=== PATIENT | female | born 1940 | race Caucasian/White ===

== ENCOUNTER 2022-01-11 11:40 | Inpatient (IN) | payer OTHER, MEDICARE ==
[~2022-01-11] VITALS: Ht 149.9 cm; Wt 90.7 kg
[~2022-01-11 11:40] MED LIST: ACET325T PO; APIX5TAB4 PO; DOCU250C14 PO; EFF37 PO; FURO80TA3 PO; HYDR-4039 PO; METF-379 PO; METH1TAB35 PO; METO25TA6 PO; MIRA25TA PO; OMEP20CA15 PO; POTA-197 PO; ROSU20TA2 PO
[2022-01-11 13:30] VITALS: BP_SYST 109
[2022-01-11] MEDS: ACETAMINOPHEN 325 MG TABLET PO PRN (17:31)
[2022-01-11] MEDS ORDERED: TRAM50TA2 PO (18:53)
[2022-01-11 19:48] LABS: ALANINE AMINOTRANSFERASE 23 U/L (12-78); ALBUMIN 2.5 g/dL (3.4-4.8); ANION GAP 10 (5-15); ASPARTATE AMINOTRANSFERASE 8 U/L (10-37); CHLORIDE 98 mmol/L (98-107); CREATININE 0.87 mg/dL (0.55-1.30); GLUCOSE 238 mg/dL (70-99); POTASSIUM 3.6 mmol/L (3.5-5.1); SODIUM SERUM 134 mmol/L (136-145); UREA NITROGEN, BLOOD 19 mg/dL (8-21)
[2022-01-11 20:00] VITALS: BP_SYST 125
[2022-01-11 20:02] LABS: PROTHROMBIN TIME 10.3 SECS (9.5-12.5)
[2022-01-11 20:16] LABS: TOTAL BILIRUBIN 0.2 mg/dL (0.0-1.0)
[2022-01-11] MEDS: ATORVASTATIN 20 MG TABLET PO SCH (22:10)
[2022-01-11] MEDS: traMADol HCL HCL 50 MG TABLET (ULTRAM) PO PRN (22:11)
[2022-01-11] MEDS: metFORMIN HCL 500 MG TABLET PO SCH (22:12)
[2022-01-11] MEDS: METOPROLOL TARTRATE 25 MG TABLET PO SCH (22:13)
[2022-01-11] MEDS: DOCUSATE SODIUM 250 MG CAPSULE PO SCH (22:14)
[2022-01-11] MEDS: POTASSIUM CHLORIDE 10 MEQ TAB.PRT.SR PO SCH (22:14)
[2022-01-11] MEDS: hydrALAZINE HCL 25 MG TABLET PO SCH (22:16)
[2022-01-12 00:32] VITALS: BP_SYST 115
[2022-01-12 03:28] LABS: BILIRUBIN,URINE NEGATIVE (NEGATIVE); BLOOD, URINE NEGATIVE (NEGATIVE); CLARITY/URINE CLEAR (CLEAR); COLOR,URINE YELLOW (YELLOW); GLUCOSE,URINE NEGATIVE (NEGATIVE); KETONES,URINE NEGATIVE (NEGATIVE); LEUKOCYTE ESTERASE ,URINE NEGATIVE (NEGATIVE); NITRITE, URINE NEGATIVE (NEGATIVE); PROTEIN URINE NEGATIVE (NEGATIVE); UROBILINOGEN,URINE 0.2 (0.2-1.0)
[2022-01-12 08:00] VITALS: BP_SYST 144
[2022-01-12 08:55] LABS: BASOPHILS # (AUTO) 0.1 K/uL (0.0-0.2); BASOPHILS % (AUTO) 0.6 % (0.0-2.0); EOSINOPHILS # (AUTO) 0.1 K/uL (0.0-0.4); EOSINOPHILS % (AUTO) 1.1 % (0.0-4.0); HEMATOCRIT 25.4 % (36-48); HEMOGLOBIN 8.1 g/dL (12.0-16.0); LYMPHOCYTES # (AUTO) 1.5 K/uL (1.0-5.5); LYMPHOCYTES % (AUTO) 12.9 % (20.5-51.5); MEAN CORPUSCULAR HEMOGLOBIN 26 pg (27-31); MEAN CORPUSCULAR HGB CONC 32 % (32-36); MEAN CORPUSCULAR VOLUME 82 fL (79.0-98.0); MONOCYTES # (AUTO) 0.7 K/uL (0.0-1.0); NEUTROPHILS % (AUTO) 79.4 % (40.0-70.0); PLATELET COUNT (AUTO) 530 K/uL (130-430); RED BLOOD CELL COUNT(AUTO) 3.12 MIL/uL (4.2-6.2); RED CELL DISTRIBUTION WIDTH 18.1 % (9.0-15.0); WHITE BLOOD COUNT (AUTO) 11.3 K/uL (4.8-10.8)
[2022-01-12] MEDS: metFORMIN HCL 500 MG TABLET PO SCH ×2 (09:00→22:00)
[2022-01-12] MEDS: METOPROLOL TARTRATE 25 MG TABLET PO SCH ×2 (09:00→23:36)
[2022-01-12] MEDS ORDERED: ACETAMINOPHEN 325 MG TABLET PO SCH (09:00)
[2022-01-12] MEDS: PANTOPRAZOLE SODIUM 40 MG TAB PO SCH (09:00)
[2022-01-12] MEDS: Effexor XR 37.5 MG PO SCH (09:00)
[2022-01-12] MEDS: POTASSIUM CHLORIDE 10 MEQ TAB.PRT.SR PO SCH ×2 (09:00→22:44)
[2022-01-12] MEDS: DOCUSATE SODIUM 250 MG CAPSULE PO SCH (09:00)
[2022-01-12] MEDS: hydrALAZINE HCL 25 MG TABLET PO SCH ×2 (09:00→23:36)
[2022-01-12] MEDS: FUROSEMIDE 80 MG TABLET PO SCH (09:00)
[2022-01-12] MEDS ORDERED: BUPIVACAINE LIPOSOME/PF 266 MG/20 ML VIAL INFIL ONE (09:50)
[2022-01-12] MEDS ORDERED: ACETAMINOPHEN I.V. 1000 MG 100 ML IV ONE (11:37)
[2022-01-12] MEDS ORDERED: PROPOFOL 200MG/ 20ML VIAL (DIPRIVAN) IV ONE (12:46)
[2022-01-12] MEDS ORDERED: CEFAZOLIN 2 GM IVPB PREMIX 50 ML IV ONE (12:46)
[2022-01-12] MEDS ORDERED: NS IRRIG SOLN 1000 ML IR ONE (12:46)
[2022-01-12] MEDS ORDERED: BUPIVACAINE /EPINEPHRINE/PF 0.5% 30 ML VIAL INJ ONE (12:46)
[2022-01-12] MEDS ORDERED: BUPIVACAINE /PF 0.5% 30 ML VIAL ONE (12:46)
[2022-01-12] MEDS ORDERED: GENTAMICIN 80 mg/ NS 50 mL IVPB IV ONE (12:46)
[2022-01-12] MEDS ORDERED: LABETALOL 100 MG/ 20ML VIAL ONE (12:46)
[2022-01-12] MEDS ORDERED: fentaNYL CITRATE/PF 100 MCG/2 ML AMP ONE (12:46)
[2022-01-12] MEDS ORDERED: HYDROmorphone 2 MG/ML VIAL ONE (12:46)
[2022-01-12] MEDS ORDERED: ONDANSETRON HCL 4 MG/2 ML VIAL ONE (12:46)
[2022-01-12] MEDS ORDERED: METOCLOPRAMIDE HCL 10 MG/2 ML VIAL ONE (12:46)
[2022-01-12] MEDS ORDERED: TRIAMCINOLONE ACETONIDE 40 MG/ML ONE (12:46)
[2022-01-12] MEDS ORDERED: NS 1000 ML IV.SOLN IV ONE (12:46)
[2022-01-12] MEDS ORDERED: DESFLURANE 15 MIN GAS INH ONE (12:46)
[2022-01-12 13:06] VITALS: BP_SYST 135
[2022-01-12] MEDS ORDERED: HYDROmorphone 2 MG/ML VIAL IVP PRN (13:30)
[2022-01-12] MEDS ORDERED: HYDROcodone/ACETAMIN 5-325 MG TAB (NORCO/ VICODIN) PO PRN ×2 (13:30)
[2022-01-12] MEDS ORDERED: NALOXONE HCL 0.4 MG/ML AMP (NARCAN) IVP PRN ×2 (13:30)
[2022-01-12] MEDS ORDERED: ONDANSETRON 4 MG ODT TAB PO PRN (13:30)
[2022-01-12] MEDS ORDERED: DIPHENHYDRAMINE INJ 50 MG/ML VIAL IVP PRN (13:30)
[2022-01-12] MEDS ORDERED: HYDROmorphone 1 MG/ML INJ. CARTRIDGE ONE (13:37)
[2022-01-12] MEDS ORDERED: HYDROmorphone 1 MG/ML INJ. CARTRIDGE IVP PRN (13:45)
[2022-01-12 16:00] VITALS: BP_SYST 114
[2022-01-12] MEDS ORDERED: MENTHOL/ZINC OXIDE 113 GM OINT. TP PRN (16:00)
[2022-01-12] MEDS: CEFAZOLIN 1 GM IVPB PREMIX 50 ML IV SCH ×2 (17:52→22:45)
[2022-01-12 20:20] VITALS: BP_SYST 108
[2022-01-12] MEDS: ATORVASTATIN 20 MG TABLET PO SCH (22:41)
[2022-01-12] MEDS: APIXABAN 2.5 MG TABLET PO SCH (22:43)
[2022-01-12] MEDS: DOCUSATE SODIUM 100 MG CAPSULE PO SCH (22:44)
[2022-01-12] MEDS: FERROUS SULFATE 325 MG TABLET.DR PO SCH (22:44)
[2022-01-12] MEDS: traMADol HCL HCL 50 MG TABLET (ULTRAM) PO PRN (23:32)
[2022-01-13 00:30] VITALS: BP_SYST 125
[2022-01-13] MEDS: ACETAMINOPHEN 325 MG TABLET PO PRN (01:30)
[2022-01-13 02:55] VITALS: BP_SYST 130
[2022-01-13] MEDS: POTASSIUM CHLORIDE 10 MEQ TAB.PRT.SR PO SCH ×2 (09:00→22:48)
[2022-01-13] MEDS: APIXABAN 2.5 MG TABLET PO SCH ×2 (09:00→22:54)
[2022-01-13] MEDS: Effexor XR 37.5 MG PO SCH (09:00)
[2022-01-13 09:31] LABS: BASOPHILS % (AUTO) 0.2 % (0.0-2.0); LYMPHOCYTES # (AUTO) 1.2 K/uL (1.0-5.5); LYMPHOCYTES % (AUTO) 7.2 % (20.5-51.5); MEAN CORPUSCULAR HEMOGLOBIN 25 pg (27-31); MEAN CORPUSCULAR HGB CONC 31 % (32-36); MEAN CORPUSCULAR VOLUME 81 fL (79.0-98.0); MONOCYTES # (AUTO) 0.4 K/uL (0.0-1.0); MONOCYTES % (AUTO) 2.7 % (1.7-9.3); NEUTROPHILS # (AUTO) 15.1 K/uL (1.8-7.7); NEUTROPHILS % (AUTO) 89.9 % (40.0-70.0); PLATELET COUNT (AUTO) 611 K/uL (130-430); RED BLOOD CELL COUNT(AUTO) 2.34 MIL/uL (4.2-6.2); RED CELL DISTRIBUTION WIDTH 18.1 % (9.0-15.0); WHITE BLOOD COUNT (AUTO) 16.7 K/uL (4.8-10.8)
[2022-01-13 10:09] LABS: HEMOGLOBIN 5.9 g/dL (12.0-16.0)
[2022-01-13] MEDS: hydrALAZINE HCL 25 MG TABLET PO SCH ×2 (10:16→22:51)
[2022-01-13] MEDS: FERROUS SULFATE 325 MG TABLET.DR PO SCH ×2 (10:17→22:49)
[2022-01-13] MEDS: FUROSEMIDE 80 MG TABLET PO SCH (10:18)
[2022-01-13] MEDS: METOPROLOL TARTRATE 25 MG TABLET PO SCH ×2 (10:18→22:50)
[2022-01-13] MEDS: PANTOPRAZOLE SODIUM 40 MG TAB PO SCH (10:18)
[2022-01-13] MEDS: DOCUSATE SODIUM 100 MG CAPSULE PO SCH ×2 (10:21→22:49)
[2022-01-13] MEDS: metFORMIN HCL 500 MG TABLET PO SCH ×2 (10:27→22:49)
[2022-01-13 13:11] VITALS: BP_SYST 123
[2022-01-13 16:07] VITALS: BP_SYST 126
[2022-01-13 20:00] VITALS: BP_SYST 137
[2022-01-13] MEDS: ATORVASTATIN 20 MG TABLET PO SCH (22:48)
[2022-01-13] MEDS: traMADol HCL HCL 50 MG TABLET (ULTRAM) PO PRN (22:48)
[2022-01-14 01:57] VITALS: BP_SYST 99
[2022-01-14] MEDS: METOPROLOL TARTRATE 25 MG TABLET PO SCH ×2 (09:00→22:26)
[2022-01-14] MEDS: hydrALAZINE HCL 25 MG TABLET PO SCH ×2 (09:00→22:25)
[2022-01-14 09:44] LABS: BASOPHILS % (AUTO) 0.1 % (0.0-2.0); HEMATOCRIT 26.5 % (36-48); HEMOGLOBIN 8.5 g/dL (12.0-16.0); LYMPHOCYTES # (AUTO) 0.8 K/uL (1.0-5.5); LYMPHOCYTES % (AUTO) 5.8 % (20.5-51.5); MEAN CORPUSCULAR HEMOGLOBIN 27 pg (27-31); MEAN CORPUSCULAR HGB CONC 32 % (32-36); MEAN CORPUSCULAR VOLUME 85 fL (79.0-98.0); MONOCYTES # (AUTO) 0.5 K/uL (0.0-1.0); MONOCYTES % (AUTO) 3.9 % (1.7-9.3); NEUTROPHILS # (AUTO) 12.8 K/uL (1.8-7.7); NEUTROPHILS % (AUTO) 90.2 % (40.0-70.0); PLATELET COUNT (AUTO) 441 K/uL (130-430); RED BLOOD CELL COUNT(AUTO) 3.13 MIL/uL (4.2-6.2); RED CELL DISTRIBUTION WIDTH 16.1 % (9.0-15.0); WHITE BLOOD COUNT (AUTO) 14.2 K/uL (4.8-10.8)
[2022-01-14] MEDS: FUROSEMIDE 80 MG TABLET PO SCH (09:47)
[2022-01-14] MEDS: POTASSIUM CHLORIDE 10 MEQ TAB.PRT.SR PO SCH ×2 (09:47→22:25)
[2022-01-14] MEDS: DOCUSATE SODIUM 100 MG CAPSULE PO SCH ×2 (09:48→22:25)
[2022-01-14] MEDS: PANTOPRAZOLE SODIUM 40 MG TAB PO SCH (09:48)
[2022-01-14] MEDS: FERROUS SULFATE 325 MG TABLET.DR PO SCH ×2 (09:48→22:25)
[2022-01-14] MEDS: metFORMIN HCL 500 MG TABLET PO SCH ×2 (09:48→22:26)
[2022-01-14] MEDS: APIXABAN 2.5 MG TABLET PO SCH ×2 (09:52→22:28)
[2022-01-14 09:54] LABS: ALANINE AMINOTRANSFERASE 18 U/L (12-78); ALBUMIN 2.3 g/dL (3.4-4.8); ANION GAP 4 (5-15); ASPARTATE AMINOTRANSFERASE 21 U/L (10-37); CALCIUM 9.9 mg/dL (8.4-11.0); CHLORIDE 102 mmol/L (98-107); CREATININE 0.81 mg/dL (0.55-1.30); GLUCOSE 281 mg/dL (70-99); POTASSIUM 3.9 mmol/L (3.5-5.1); SODIUM SERUM 131 mmol/L (136-145); UREA NITROGEN, BLOOD 20 mg/dL (8-21)
[2022-01-14] MEDS: Effexor XR 37.5 MG PO SCH (09:54)
[2022-01-14 10:21] LABS: TOTAL BILIRUBIN < 0.1 mg/dL (0.0-1.0)
[2022-01-14] MEDS: ACETAMINOPHEN 325 MG TABLET PO PRN (15:19)
[2022-01-14 16:27] VITALS: BP_SYST 110
[2022-01-14 20:10] VITALS: BP_SYST 142
[2022-01-14] MEDS: ATORVASTATIN 20 MG TABLET PO SCH (22:33)
[2022-01-14] MEDS: traMADol HCL HCL 50 MG TABLET (ULTRAM) PO PRN (22:34)
[2022-01-15 01:57] VITALS: BP_SYST 147
[2022-01-15] MEDS: ACETAMINOPHEN 325 MG TABLET PO PRN (03:46)
[2022-01-15] MEDS: metFORMIN HCL 500 MG TABLET PO SCH ×2 (09:13→22:22)
[2022-01-15] MEDS: FERROUS SULFATE 325 MG TABLET.DR PO SCH ×2 (09:13→22:23)
[2022-01-15] MEDS: DOCUSATE SODIUM 100 MG CAPSULE PO SCH ×2 (09:14→22:23)
[2022-01-15] MEDS: hydrALAZINE HCL 25 MG TABLET PO SCH ×2 (09:14→22:23)
[2022-01-15] MEDS: FUROSEMIDE 80 MG TABLET PO SCH (09:14)
[2022-01-15] MEDS: PANTOPRAZOLE SODIUM 40 MG TAB PO SCH (09:14)
[2022-01-15] MEDS: METOPROLOL TARTRATE 25 MG TABLET PO SCH ×2 (09:15→22:21)
[2022-01-15] MEDS: POTASSIUM CHLORIDE 10 MEQ TAB.PRT.SR PO SCH ×2 (09:15→22:23)
[2022-01-15] MEDS: APIXABAN 2.5 MG TABLET PO SCH ×2 (09:16→22:28)
[2022-01-15] MEDS: Effexor XR 37.5 MG PO SCH (09:20)
[2022-01-15] MEDS ORDERED: INSULIN LISPRO SLIDING SCALE 100 UNITS/ML VIAL (humaLOG) SUBCUT PRN (12:00)
[2022-01-15 12:40] VITALS: BP_SYST 126
[2022-01-15 16:39] LABS: INR 0.9 (0.8-1.2); PROTHROMBIN TIME 9.3 SECS (9.5-12.5)
[2022-01-15] MEDS: VANCOMYCIN HCL 750 MG in NS 250 ML IV SCH (17:02)
[2022-01-15 18:04] VITALS: BP_SYST 136
[2022-01-15] MEDS: ATORVASTATIN 20 MG TABLET PO SCH (22:21)
[2022-01-15] MEDS: traMADol HCL HCL 50 MG TABLET (ULTRAM) PO PRN (22:33)
[2022-01-15 23:58] VITALS: BP_SYST 133
[2022-01-16 05:14] VITALS: BP_SYST 150
[2022-01-16] MEDS: APIXABAN 2.5 MG TABLET PO SCH ×2 (08:20→21:37)
[2022-01-16] MEDS: hydrALAZINE HCL 25 MG TABLET PO SCH ×2 (08:21→21:34)
[2022-01-16] MEDS: FERROUS SULFATE 325 MG TABLET.DR PO SCH ×2 (08:21→21:33)
[2022-01-16] MEDS: POTASSIUM CHLORIDE 10 MEQ TAB.PRT.SR PO SCH ×2 (08:21→21:34)
[2022-01-16] MEDS: DOCUSATE SODIUM 100 MG CAPSULE PO SCH ×2 (08:22→21:34)
[2022-01-16] MEDS: metFORMIN HCL 500 MG TABLET PO SCH ×2 (08:22→21:33)
[2022-01-16] MEDS: METOPROLOL TARTRATE 25 MG TABLET PO SCH ×2 (08:23→21:35)
[2022-01-16] MEDS: FUROSEMIDE 80 MG TABLET PO SCH (08:24)
[2022-01-16] MEDS: ACETAMINOPHEN 325 MG TABLET PO PRN ×2 (08:25→15:14)
[2022-01-16] MEDS: Effexor XR 37.5 MG PO SCH (08:54)
[2022-01-16] MEDS: PANTOPRAZOLE SODIUM 40 MG TAB PO SCH (08:55)
[2022-01-16 11:26] VITALS: BP_SYST 113
[2022-01-16 12:00] VITALS: BP_SYST 124
[2022-01-16 12:24] LABS: INR 0.9 (0.8-1.2); PROTHROMBIN TIME 9.7 SECS (9.5-12.5)
[2022-01-16] MEDS: VANCOMYCIN HCL 750 MG in NS 250 ML IV SCH (15:19)
[2022-01-16 15:20] VITALS: BP_SYST 146
[2022-01-16 16:00] VITALS: BP_SYST 138
[2022-01-16 21:08] VITALS: BP_SYST 138
[2022-01-16] MEDS: ATORVASTATIN 20 MG TABLET PO SCH (21:35)
[2022-01-16] MEDS: traMADol HCL HCL 50 MG TABLET (ULTRAM) PO PRN (21:36)
== END 2022-01-16 22:35 | DRG 463 ==
LOC: SMU 11:40
PROVIDERS: ADMIT Orthopaedic Surgery; ATTEND Orthopaedic Surgery
PROC: 30233N1 Transfusion of Nonautologous Red Blood Cells into Peripheral Vein, Percutaneous Approach (ICD-10-PCS; 2022-01-13)
PROC: 0SPC09Z Removal of Liner from Right Knee Joint, Open Approach (ICD-10-PCS; principal; 2022-01-16)
PROC: 0SUC09Z Supplement Right Knee Joint with Liner, Open Approach (ICD-10-PCS; 2022-01-16)
PROC: 3E1U38Z Irrigation of Joints using Irrigating Substance, Percutaneous Approach (ICD-10-PCS; 2022-01-16)
DX: T84.53XA Infection and inflammatory reaction due to internal right knee prosthesis, initial encounter (principal); E43 Unspecified severe protein-calorie malnutrition; M00.9 Pyogenic arthritis, unspecified; T81.30XA Disruption of wound, unspecified, initial encounter; Z68.41 Body mass index [BMI] 40.0-44.9, adult; I10 Essential (primary) hypertension; E11.9 Type 2 diabetes mellitus without complications; Z96.651 Presence of right artificial knee joint; Z66 Do not resuscitate; E66.9 Obesity, unspecified; Z20.822 Contact with and (suspected) exposure to COVID-19; D63.8 Anemia in other chronic diseases classified elsewhere; M17.11 Unilateral primary osteoarthritis, right knee; E78.5 Hyperlipidemia, unspecified; Y83.1 Surgical operation with implant of artificial internal device as the cause of abnormal reaction of the patient, or of later complication, without mention of misadventure at the time of the procedure; Y92.89 Other specified places as the place of occurrence of the external cause
CPT/HCPCS: 36415; 71045; 80053; 81003; 82962; 85025; 85610-TC; 85651-TC; 85730-TC; 86140; 86886; 86900; 86901; 86920; 87070-TC; 87081; 88300; 93005; 97110-GP; 97116-GP; 97163-GP; 97530-GP; A2007; C1776; C9290; J0131; J0690; J1170; J1580; J2405; J2704; J2765; J3010; J3301; J3370; J3490; J7030; J7050; P9021

== ENCOUNTER 2022-02-17 22:12 | Inpatient (IN) | payer OTHER, MEDICARE ==
[~2022-02-17] VITALS: Ht 149.9 cm; Wt 87.5 kg
[~2022-02-17 22:12] MED LIST changes: +TRAM50TA2 PO
[2022-02-17 22:20] VITALS: BP_SYST 115
[2022-02-17 23:30] LABS: BASOPHILS # (AUTO) 0.1 K/uL (0.0-0.2); EOSINOPHILS # (AUTO) 0.1 K/uL (0.0-0.4); LYMPHOCYTES # (AUTO) 1.2 K/uL (1.0-5.5); MEAN CORPUSCULAR HEMOGLOBIN 27 pg (27-31); NEUTROPHILS # (AUTO) 4.5 K/uL (1.8-7.7)
[2022-02-17 23:40] LABS: ANION GAP 6 (5-15); BASOPHILS % (AUTO) 1.4 % (0.0-2.0); CALCIUM 9.1 mg/dL (8.4-11.0); CHLORIDE 102 mmol/L (98-107); CREATININE 0.98 mg/dL (0.55-1.30); EOSINOPHILS % (AUTO) 1.8 % (0.0-4.0); GLUCOSE 123 mg/dL (70-99); HEMATOCRIT 31.2 % (36-48); LYMPHOCYTES % (AUTO) 18.9 % (20.5-51.5); MEAN CORPUSCULAR HGB CONC 32 % (32-36); MEAN CORPUSCULAR VOLUME 83 fL (79.0-98.0); MONOCYTES # (AUTO) 0.5 K/uL (0.0-1.0); MONOCYTES % (AUTO) 7.3 % (1.7-9.3); NEUTROPHILS % (AUTO) 70.6 % (40.0-70.0); PLATELET COUNT (AUTO) 274 K/uL (130-430); POTASSIUM 3.9 mmol/L (3.5-5.1); RED BLOOD CELL COUNT(AUTO) 3.77 MIL/uL (4.2-6.2); RED CELL DISTRIBUTION WIDTH 17.7 % (9.0-15.0); SODIUM SERUM 136 mmol/L (136-145); UREA NITROGEN, BLOOD 19 mg/dL (8-21); WHITE BLOOD COUNT (AUTO) 6.3 K/uL (4.8-10.8)
[2022-02-17] MEDS ORDERED: CEFAZOLIN 1 GM IVPB PREMIX 50 ML IV ONE (23:45)
[2022-02-17] MEDS ORDERED: INSULIN REGULAR, HUMAN 100 UNITS/ML, 10 ML VIAL (humuLIN R) SUBCUT PRN ×2 (23:45)
[2022-02-17 23:47] LABS: ALANINE AMINOTRANSFERASE 29 U/L (12-78); ALBUMIN 2.7 g/dL (3.4-4.8); ASPARTATE AMINOTRANSFERASE 19 U/L (10-37); TOTAL BILIRUBIN 0.1 mg/dL (0.0-1.0)
[2022-02-18] MEDS ORDERED: PIPERACILLIN/TAZOBACTAM 2.25 GM in NS 50 ML IV SCH ×2
[2022-02-18] MEDS ORDERED: BISA10SU61 RC (00:57)
[2022-02-18] MEDS ORDERED: CALC-1140 PO (00:58)
[2022-02-18] MEDS ORDERED: CALMO120 TP (00:59)
[2022-02-18] MEDS ORDERED: VENL150C4 PO (01:12)
[2022-02-18] MEDS ORDERED: VANC1.2527 IV (01:12)
[2022-02-18] MEDS ORDERED: ASCO500T20 PO (01:13)
[2022-02-18] MEDS ORDERED: RIFA300C9 PO (01:14)
[2022-02-18] MEDS ORDERED: LIP80 PO (01:15)
[2022-02-18] MEDS ORDERED: LACT1TAB14 PO (01:18)
[2022-02-18] MEDS ORDERED: IBUP-1969 PO (01:19)
[2022-02-18] MEDS ORDERED: LOVI100 SQ (01:22)
[2022-02-18] MEDS ORDERED: LIDO1ADH77 TP (01:22)
[2022-02-18] MEDS ORDERED: METH1TAB35 PO (01:23)
[2022-02-18] MEDS ORDERED: MULT-598 PO (01:24)
[2022-02-18] MEDS ORDERED: PRO40 PO (01:25)
[2022-02-18] MEDS ORDERED: DICL100G33 TP (01:27)
[2022-02-18] MEDS ORDERED: MAGN400T10 PO (01:30)
[2022-02-18] MEDS ORDERED: MELA5TAB12 PO (01:31)
[2022-02-18] MEDS ORDERED: SSNOVOLOG SUBCUT (01:37)
[2022-02-18] MEDS ORDERED: ceFAZolin SODIUM 1 GM VIAL ONE (02:25)
[2022-02-18 03:35] VITALS: BP_SYST 118
[2022-02-18] MEDS ORDERED: PIPERACILLIN/TAZOBACTAM 2.25 GM VIAL IV ONE (04:46)
[2022-02-18 08:00] VITALS: BP_SYST 124
[2022-02-18] MEDS ORDERED: GLUCOSE (DEXTROSE) ORAL GEL -Adults PO PRN (08:00)
[2022-02-18] MEDS ORDERED: DEXTROSE 50%-WATER 50 ML DISP.SYRIN IVP PRN (08:00)
[2022-02-18] MEDS ORDERED: D5W 1,000 ML IV PRN (08:00)
[2022-02-18] MEDS ORDERED: LACT10SO7 PO (11:53)
[2022-02-18 12:00] VITALS: BP_SYST 120
[2022-02-18] MEDS: PIPERACILLIN/TAZO 2.25G/DEX-IS 50 ML IV SCH ×2 (12:16→17:19)
[2022-02-18] MEDS: INSULIN REGULAR, HUMAN 100 UNITS/ML, 10 ML VIAL (humuLIN R) SUBCUT PRN (12:35)
[2022-02-18] MEDS: IBUPROFEN 600 MG TABLET PO PRN ×2 (13:45→21:21)
[2022-02-18] MEDS ORDERED: MENTHOL/ZINC OXIDE 113 GM OINT. TP SCH (14:15)
[2022-02-18] MEDS ORDERED: BISACODYL 10 MG/SUPPOSITORY RC PRN (14:15)
[2022-02-18] MEDS ORDERED: traMADol HCL HCL 50 MG TABLET (ULTRAM) PO PRN (14:15)
[2022-02-18] MEDS ORDERED: IBUPROFEN 600 MG TABLET PO PRN (14:15)
[2022-02-18] MEDS ORDERED: VENLAFAXINE HCL Non-Formulary 75 MG CAP.SR.24H PO SCH (14:15)
[2022-02-18] MEDS ORDERED: VENLAFAXINE HCL 50 MG TABLET PO SCH (15:00)
[2022-02-18] MEDS ORDERED: FUROSEMIDE 80 MG TABLET PO ONE (15:00)
[2022-02-18] MEDS ORDERED: METOPROLOL TARTRATE 25 MG TABLET PO ONE (15:00)
[2022-02-18] MEDS ORDERED: hydrALAZINE HCL 25 MG TABLET PO ONE (15:00)
[2022-02-18 16:31] VITALS: BP_SYST 128
[2022-02-18] MEDS: VANCOMYCIN HCL 1,000 MG in NS 250 ML IV SCH (17:16)
[2022-02-18] MEDS: ENOXAPARIN SODIUM 100 MG/ML SYRINGE SQ SCH (21:00)
[2022-02-18 21:02] VITALS: BP_SYST 132
[2022-02-18] MEDS: ATORVASTATIN 20 MG TABLET PO SCH (21:07)
[2022-02-18] MEDS: POTASSIUM CHLORIDE 20 MEQ TAB.PRT.SR PO SCH (21:07)
[2022-02-18] MEDS: MAGNESIUM OXIDE 400 MG TABLET PO SCH (21:07)
[2022-02-18] MEDS: METOPROLOL TARTRATE 25 MG TABLET PO SCH (21:08)
[2022-02-18] MEDS: metFORMIN HCL 500 MG TABLET PO SCH (21:09)
[2022-02-18] MEDS: hydrALAZINE HCL 25 MG TABLET PO SCH (21:09)
[2022-02-18] MEDS: DOCUSATE SODIUM 250 MG CAPSULE PO SCH (21:10)
[2022-02-18] MEDS: ASCORBIC ACID 500 MG TABLET PO SCH (21:10)
[2022-02-18] MEDS: LACTOBACILLUS RHAMNOSUS GG 1 CAP CAPSULE PO SCH (21:10)
[2022-02-18] MEDS: rifAMPin 300 MG CAPSULE PO SCH (21:10)
[2022-02-19] MEDS: PIPERACILLIN/TAZO 2.25G/DEX-IS 50 ML IV SCH ×2 (00:22→05:50)
[2022-02-19 00:41] VITALS: BP_SYST 130
[2022-02-19 08:30] VITALS: BP_SYST 137
[2022-02-19] MEDS: FUROSEMIDE 80 MG TABLET PO SCH (09:00)
[2022-02-19] MEDS: PANTOPRAZOLE SODIUM 40 MG TAB PO SCH (09:00)
[2022-02-19] MEDS: ASCORBIC ACID 500 MG TABLET PO SCH ×2 (09:00→21:00)
[2022-02-19] MEDS: DOCUSATE SODIUM 250 MG CAPSULE PO SCH ×2 (09:00→21:00)
[2022-02-19] MEDS: LACTOBACILLUS RHAMNOSUS GG 1 CAP CAPSULE PO SCH ×2 (09:00→22:55)
[2022-02-19] MEDS: MAGNESIUM OXIDE 400 MG TABLET PO SCH ×2 (09:00→22:52)
[2022-02-19] MEDS: ENOXAPARIN SODIUM 100 MG/ML SYRINGE SQ SCH ×2 (09:00→23:05)
[2022-02-19] MEDS: Effexor XR 37.5 MG PO SCH (09:00)
[2022-02-19] MEDS: POTASSIUM CHLORIDE 20 MEQ TAB.PRT.SR PO SCH ×2 (09:00→22:52)
[2022-02-19] MEDS: metFORMIN HCL 500 MG TABLET PO SCH ×2 (09:00→21:00)
[2022-02-19] MEDS: hydrALAZINE HCL 25 MG TABLET PO SCH ×2 (10:00→22:55)
[2022-02-19] MEDS: METOPROLOL TARTRATE 25 MG TABLET PO SCH ×2 (10:01→22:53)
[2022-02-19] MEDS: D5LR 1,000 ML IV SCH ×2 (10:01→22:35)
[2022-02-19] MEDS ORDERED: LIDOCAINE 2%, 20 ML MDV INJ ONE (11:15)
[2022-02-19] MEDS ORDERED: SEVOFLURANE 15 MIN GAS INH ONE (11:15)
[2022-02-19] MEDS ORDERED: KETOROLAC TROMETHAMINE 30 MG VIAL IVP ONE (11:15)
[2022-02-19] MEDS ORDERED: LR 1,000 ML IV.SOLN IV ONE (11:15)
[2022-02-19] MEDS ORDERED: ONDANSETRON HCL 4 MG/2 ML VIAL IVP ONE (11:15)
[2022-02-19] MEDS ORDERED: PROPOFOL 200MG/ 20ML VIAL (DIPRIVAN) IV ONE (11:15)
[2022-02-19] MEDS ORDERED: NS IRRIG SOLN 1000 ML IR ONE (11:15)
[2022-02-19] MEDS ORDERED: BUPIVACAINE /EPINEPHRINE/PF 0.5% 30 ML VIAL INJ ONE (11:15)
[2022-02-19] MEDS ORDERED: MIDAZOLAM HCL 5 MG/5 ML VIAL IVP ONE (11:15)
[2022-02-19] MEDS ORDERED: fentaNYL CITRATE/PF 100 MCG/2 ML AMP IVP ONE (11:15)
[2022-02-19] MEDS ORDERED: DEXAMETHASONE SOD PHOSPHATE 4 MG/ML VIAL IVP ONE (11:15)
[2022-02-19] MEDS ORDERED: HYDROmorphone 1 MG/ML INJ. CARTRIDGE IVP PRN ×2 (11:30)
[2022-02-19] MEDS ORDERED: LABETALOL 100 MG/ 20ML VIAL IVP PRN (11:30)
[2022-02-19] MEDS ORDERED: hydrALAZINE HCL 20 MG/ML VIAL IVP PRN (11:30)
[2022-02-19] MEDS ORDERED: METOCLOPRAMIDE HCL 10 MG/2 ML VIAL IVP PRN (11:30)
[2022-02-19] MEDS: LR 1,000 ML IV SCH ×2 (11:30→21:30)
[2022-02-19 12:00] VITALS: BP_SYST 138
[2022-02-19] MEDS ORDERED: ACETAMINOPHEN I.V. 1000 MG 100 ML IV ONE (12:29)
[2022-02-19] MEDS: ceFAZolin SODIUM 1 GM in D5W 50 ML IV SCH ×2 (14:45→23:19)
[2022-02-19 16:28] VITALS: BP_SYST 120
[2022-02-19] MEDS: IBUPROFEN 600 MG TABLET PO PRN ×2 (16:30→22:41)
[2022-02-19 17:04] VITALS: BP_SYST 123
[2022-02-19] MEDS: VANCOMYCIN HCL 1,000 MG in NS 250 ML IV SCH (17:50)
[2022-02-19] MEDS: INSULIN REGULAR, HUMAN 100 UNITS/ML, 10 ML VIAL (humuLIN R) SUBCUT PRN ×2 (17:59→23:12)
[2022-02-19] MEDS: rifAMPin 300 MG CAPSULE PO SCH (21:00)
[2022-02-19] MEDS: ATORVASTATIN 20 MG TABLET PO SCH (23:01)
[2022-02-19 23:50] VITALS: BP_SYST 125
[2022-02-20 01:04] VITALS: BP_SYST 126
[2022-02-20] MEDS: ACETAMINOPHEN 325 MG TABLET PO PRN (01:26)
[2022-02-20] MEDS: INSULIN REGULAR, HUMAN 100 UNITS/ML, 10 ML VIAL (humuLIN R) SUBCUT PRN (06:25)
[2022-02-20] MEDS: LR 1,000 ML IV SCH ×2 (07:30→16:55)
[2022-02-20] MEDS: ceFAZolin SODIUM 1 GM in D5W 50 ML IV SCH ×3 (07:49→21:17)
[2022-02-20] MEDS: metFORMIN HCL 500 MG TABLET PO SCH ×2 (08:11→21:29)
[2022-02-20] MEDS: ASCORBIC ACID 500 MG TABLET PO SCH ×2 (08:12→21:29)
[2022-02-20] MEDS: LACTOBACILLUS RHAMNOSUS GG 1 CAP CAPSULE PO SCH ×2 (08:12→21:28)
[2022-02-20] MEDS: MAGNESIUM OXIDE 400 MG TABLET PO SCH ×2 (08:12→21:29)
[2022-02-20] MEDS: PANTOPRAZOLE SODIUM 40 MG TAB PO SCH (08:12)
[2022-02-20] MEDS: DOCUSATE SODIUM 250 MG CAPSULE PO SCH ×2 (08:12→21:28)
[2022-02-20] MEDS: METOPROLOL TARTRATE 25 MG TABLET PO SCH ×2 (08:13→21:00)
[2022-02-20] MEDS: FUROSEMIDE 80 MG TABLET PO SCH (08:13)
[2022-02-20] MEDS: POTASSIUM CHLORIDE 20 MEQ TAB.PRT.SR PO SCH ×2 (08:13→21:29)
[2022-02-20] MEDS: hydrALAZINE HCL 25 MG TABLET PO SCH ×2 (08:14→21:00)
[2022-02-20] MEDS: Effexor XR 37.5 MG PO SCH (08:14)
[2022-02-20] MEDS: traMADol HCL HCL 50 MG TABLET (ULTRAM) PO PRN ×2 (08:16→21:45)
[2022-02-20] MEDS: ENOXAPARIN SODIUM 100 MG/ML SYRINGE SQ SCH ×2 (08:18→21:22)
[2022-02-20 08:19] VITALS: BP_SYST 133
[2022-02-20 08:31] LABS: BASOPHILS % (AUTO) 0.6 % (0.0-2.0); EOSINOPHILS # (AUTO) 0.1 K/uL (0.0-0.4); HEMATOCRIT 25.9 % (36-48); HEMOGLOBIN 8.4 g/dL (12.0-16.0); LYMPHOCYTES # (AUTO) 1.3 K/uL (1.0-5.5); LYMPHOCYTES % (AUTO) 20.7 % (20.5-51.5); MEAN CORPUSCULAR HEMOGLOBIN 27 pg (27-31); MEAN CORPUSCULAR HGB CONC 32 % (32-36); MEAN CORPUSCULAR VOLUME 83 fL (79.0-98.0); MONOCYTES # (AUTO) 0.4 K/uL (0.0-1.0); MONOCYTES % (AUTO) 7.2 % (1.7-9.3); NEUTROPHILS # (AUTO) 4.3 K/uL (1.8-7.7); NEUTROPHILS % (AUTO) 69.5 % (40.0-70.0); PLATELET COUNT (AUTO) 289 K/uL (130-430); RED BLOOD CELL COUNT(AUTO) 3.14 MIL/uL (4.2-6.2); RED CELL DISTRIBUTION WIDTH 17.7 % (9.0-15.0); WHITE BLOOD COUNT (AUTO) 6.2 K/uL (4.8-10.8)
[2022-02-20 08:40] LABS: ANION GAP 7 (5-15); CALCIUM 9.2 mg/dL (8.4-11.0); CHLORIDE 104 mmol/L (98-107); CREATININE 0.68 mg/dL (0.55-1.30); GLUCOSE 156 mg/dL (70-99); POTASSIUM 4.2 mmol/L (3.5-5.1); SODIUM SERUM 138 mmol/L (136-145); UREA NITROGEN, BLOOD 18 mg/dL (8-21)
[2022-02-20 11:33] VITALS: BP_SYST 130
[2022-02-20] MEDS: D5LR 1,000 ML IV SCH (11:55)
[2022-02-20] MEDS: IBUPROFEN 600 MG TABLET PO PRN (13:14)
[2022-02-20 16:48] VITALS: BP_SYST 136
[2022-02-20] MEDS: VANCOMYCIN HCL 1,000 MG in NS 250 ML IV SCH (17:11)
[2022-02-20] MEDS: ATORVASTATIN 20 MG TABLET PO SCH (21:28)
[2022-02-20] MEDS: rifAMPin 300 MG CAPSULE PO SCH (21:45)
[2022-02-21 00:45] VITALS: BP_SYST 127
[2022-02-21] MEDS: D5LR 1,000 ML IV SCH ×2 (01:15→17:19)
[2022-02-21] MEDS: LR 1,000 ML IV SCH ×2 (03:30→14:25)
[2022-02-21] MEDS: ceFAZolin SODIUM 1 GM in D5W 50 ML IV SCH ×3 (07:29→21:36)
[2022-02-21] MEDS: PANTOPRAZOLE SODIUM 40 MG TAB PO SCH (08:21)
[2022-02-21] MEDS: DOCUSATE SODIUM 250 MG CAPSULE PO SCH ×2 (08:21→21:34)
[2022-02-21] MEDS: IBUPROFEN 600 MG TABLET PO PRN (08:23)
[2022-02-21] MEDS: ASCORBIC ACID 500 MG TABLET PO SCH ×2 (08:23→21:35)
[2022-02-21] MEDS: traMADol HCL HCL 50 MG TABLET (ULTRAM) PO PRN (08:24)
[2022-02-21] MEDS: ACETAMINOPHEN 325 MG TABLET PO PRN ×2 (08:25→18:58)
[2022-02-21] MEDS: POTASSIUM CHLORIDE 20 MEQ TAB.PRT.SR PO SCH ×2 (08:26→21:34)
[2022-02-21] MEDS: METOPROLOL TARTRATE 25 MG TABLET PO SCH ×2 (08:26→21:35)
[2022-02-21] MEDS: LACTOBACILLUS RHAMNOSUS GG 1 CAP CAPSULE PO SCH ×2 (08:26→21:35)
[2022-02-21] MEDS: ENOXAPARIN SODIUM 100 MG/ML SYRINGE SQ SCH ×2 (08:28→21:47)
[2022-02-21] MEDS: MAGNESIUM OXIDE 400 MG TABLET PO SCH ×2 (08:31→21:35)
[2022-02-21] MEDS: metFORMIN HCL 500 MG TABLET PO SCH ×2 (08:35→21:33)
[2022-02-21 08:40] VITALS: BP_SYST 117
[2022-02-21 13:12] VITALS: BP_SYST 101
[2022-02-21 14:03] LABS: INR 0.9 (0.8-1.2)
[2022-02-21 16:49] VITALS: BP_SYST 121
[2022-02-21] MEDS: VANCOMYCIN HCL 1,000 MG in NS 250 ML IV SCH (17:21)
[2022-02-21] MEDS: ATORVASTATIN 20 MG TABLET PO SCH (21:33)
[2022-02-21] MEDS: hydrALAZINE HCL 25 MG TABLET PO SCH (21:34)
[2022-02-21] MEDS: rifAMPin 300 MG CAPSULE PO SCH (21:35)
[2022-02-22 00:44] VITALS: BP_SYST 124
[2022-02-22] MEDS: D5LR 1,000 ML IV SCH ×2 (05:10→18:34)
[2022-02-22] MEDS: ceFAZolin SODIUM 1 GM in D5W 50 ML IV SCH (06:18)
[2022-02-22 08:50] VITALS: BP_SYST 124
[2022-02-22] MEDS: FUROSEMIDE 80 MG TABLET PO SCH ×2 (09:00→09:26)
[2022-02-22] MEDS: ENOXAPARIN SODIUM 100 MG/ML SYRINGE SQ SCH (09:21)
[2022-02-22] MEDS: DOCUSATE SODIUM 250 MG CAPSULE PO SCH ×2 (09:24→23:51)
[2022-02-22] MEDS: metFORMIN HCL 500 MG TABLET PO SCH ×2 (09:24→23:52)
[2022-02-22] MEDS: traMADol HCL HCL 50 MG TABLET (ULTRAM) PO PRN ×2 (09:24→23:52)
[2022-02-22] MEDS: PANTOPRAZOLE SODIUM 40 MG TAB PO SCH (09:26)
[2022-02-22] MEDS: ASCORBIC ACID 500 MG TABLET PO SCH ×2 (09:26→23:51)
[2022-02-22] MEDS: Effexor XR 37.5 MG PO SCH ×2 (09:26→09:34)
[2022-02-22] MEDS: POTASSIUM CHLORIDE 20 MEQ TAB.PRT.SR PO SCH ×2 (09:26→23:51)
[2022-02-22] MEDS: METOPROLOL TARTRATE 25 MG TABLET PO SCH ×2 (09:26→23:57)
[2022-02-22] MEDS: MAGNESIUM OXIDE 400 MG TABLET PO SCH ×2 (09:27→23:52)
[2022-02-22] MEDS: LACTOBACILLUS RHAMNOSUS GG 1 CAP CAPSULE PO SCH ×2 (09:27→23:52)
[2022-02-22] MEDS: hydrALAZINE HCL 25 MG TABLET PO SCH ×2 (09:27→21:00)
[2022-02-22 11:32] VITALS: BP_SYST 129
[2022-02-22] MEDS: INSULIN REGULAR, HUMAN 100 UNITS/ML, 10 ML VIAL (humuLIN R) SUBCUT PRN (12:28)
[2022-02-22] MEDS: IBUPROFEN 600 MG TABLET PO PRN ×2 (12:54→18:29)
[2022-02-22 15:43] VITALS: BP_SYST 130
[2022-02-22] MEDS: VANCOMYCIN HCL 1,000 MG in NS 250 ML IV SCH (19:20)
[2022-02-22] MEDS: rifAMPin 300 MG CAPSULE PO SCH (21:00)
[2022-02-22 22:25] VITALS: BP_SYST 104
[2022-02-22] MEDS: ATORVASTATIN 20 MG TABLET PO SCH (23:52)
[2022-02-23] MEDS: ENOXAPARIN SODIUM 100 MG/ML SYRINGE SQ SCH ×2 (00:05→09:02)
[2022-02-23 00:42] VITALS: BP_SYST 126
[2022-02-23] MEDS: IBUPROFEN 600 MG TABLET PO PRN ×2 (05:12→09:07)
[2022-02-23 08:00] VITALS: BP_SYST 116
[2022-02-23] MEDS: FUROSEMIDE 80 MG TABLET PO SCH (08:59)
[2022-02-23] MEDS: LACTOBACILLUS RHAMNOSUS GG 1 CAP CAPSULE PO SCH (08:59)
[2022-02-23] MEDS: DOCUSATE SODIUM 250 MG CAPSULE PO SCH (08:59)
[2022-02-23] MEDS: PANTOPRAZOLE SODIUM 40 MG TAB PO SCH (09:00)
[2022-02-23] MEDS: metFORMIN HCL 500 MG TABLET PO SCH (09:00)
[2022-02-23] MEDS: MAGNESIUM OXIDE 400 MG TABLET PO SCH (09:00)
[2022-02-23] MEDS: METOPROLOL TARTRATE 25 MG TABLET PO SCH (09:00)
[2022-02-23] MEDS: POTASSIUM CHLORIDE 20 MEQ TAB.PRT.SR PO SCH (09:00)
[2022-02-23] MEDS: ASCORBIC ACID 500 MG TABLET PO SCH (09:00)
[2022-02-23] MEDS: hydrALAZINE HCL 25 MG TABLET PO SCH (09:01)
[2022-02-23] MEDS: Effexor XR 37.5 MG PO SCH (09:02)
[2022-02-23] MEDS ORDERED: VANC1FRO2 IV (11:07)
[2022-02-23 11:30] VITALS: BP_SYST 126
[2022-02-23 11:33] VITALS: BP_SYST 116
[2022-02-23 16:45] VITALS: BP_SYST 122
[2022-02-23] MEDS: VANCOMYCIN HCL 1,000 MG in NS 250 ML IV SCH (17:20)
== END 2022-02-23 19:00 | DRG 907 ==
LOC: SED 22:12 → SMU 23:45
PROVIDERS: ADMIT Internal Medicine; ATTEND Internal Medicine
PROC: 3E1U38Z Irrigation of Joints using Irrigating Substance, Percutaneous Approach (ICD-10-PCS; 2022-02-19)
PROC: 0QRG0JZ Replacement of Right Tibia with Synthetic Substitute, Open Approach (ICD-10-PCS; 2022-02-19)
PROC: 0S9C0ZZ Drainage of Right Knee Joint, Open Approach (ICD-10-PCS; principal; 2022-02-19 11:25)
DX: T81.30XA Disruption of wound, unspecified, initial encounter (principal); E43 Unspecified severe protein-calorie malnutrition; T81.41XA Infection following a procedure, superficial incisional surgical site, initial encounter; L03.115 Cellulitis of right lower limb; E11.9 Type 2 diabetes mellitus without complications; D64.9 Anemia, unspecified; M17.11 Unilateral primary osteoarthritis, right knee; E78.5 Hyperlipidemia, unspecified; E66.01 Morbid (severe) obesity due to excess calories; Z96.651 Presence of right artificial knee joint; I10 Essential (primary) hypertension; Y83.8 Other surgical procedures as the cause of abnormal reaction of the patient, or of later complication, without mention of misadventure at the time of the procedure; Z20.822 Contact with and (suspected) exposure to COVID-19; Z88.5 Allergy status to narcotic agent; Z88.8 Allergy status to other drugs, medicaments and biological substances; Z79.899 Other long term (current) drug therapy; Z86.718 Personal history of other venous thrombosis and embolism; Y92.89 Other specified places as the place of occurrence of the external cause; Z68.39 Body mass index [BMI] 39.0-39.9, adult
CPT/HCPCS: 36415; 73700-TC; 76376; 80048; 80053; 80202; 82962; 85025; 85610-TC; 85651-TC; 86140; 87040; 87070; 87070-TC; 87075-TC; 87081; 93005; 94010; 96365; 97116-GP; 97163-GP; 97530-GP; 99285; J0131; J0690; J1100; J1650; J1815; J1885; J2001; J2250; J2405; J2543; J2704; J3010; J3370; J3490; J7050; J7060; J7120

== ENCOUNTER 2022-05-25 10:40 | Day surgery (SDC) | payer OTHER, MEDICARE ==
[~2022-05-25] VITALS: Ht 149.9 cm; Wt 85.7 kg
[~2022-05-25 10:40] MED LIST changes: -APIX5TAB4 PO; +ASCO500T20 PO; +BISA10SU61 RC; +CALC-1140 PO; +CALMO120 TP; +DICL100G33 TP; -EFF37 PO; +IBUP-1969 PO; +LACT10SO7 PO; +LACT1TAB14 PO; +LIDO1ADH77 TP; +LIP80 PO; +LOVI100 SQ; +MAGN400T10 PO; +MELA5TAB12 PO; +MULT-598 PO; -OMEP20CA15 PO; +PRO40 PO; +RIFA300C9 PO; -ROSU20TA2 PO; +SSNOVOLOG SUBCUT; +VANC1FRO2 IV; +VENL150C4 PO
[2022-05-25 14:51] VITALS: BP_SYST 118
--- NOTE | 2022-05-25 15:01 | NUR ---
PT BIB FAMILY FOR SURGERY TODAY. PT UNDER CARE OF DR. WOODRUFF. PT STATES SHE IS TO BE A DIRECT ADMIT AND HAVE A GRAFT DONE TO HER KNEE. PT STATES SHE HAD A TKR ON 12/08/21 WITH REMOVAL OF HARDWARE TWO WEEKS AFTER INITIAL SURGERY DUE TO INFECTION. PT TRIAGED AND STEPHANIE MARCIAL TOOK PT TO OR.
[2022-05-25 17:03] LABS: ANION GAP 8 (5-15); CALCIUM 9.8 mg/dL (8.4-11.0); CHLORIDE 99 mmol/L (98-107); CREATININE 0.66 mg/dL (0.55-1.30); GLUCOSE 106 mg/dL (70-99); POTASSIUM 3.2 mmol/L (3.5-5.1); SODIUM SERUM 138 mmol/L (136-145); UREA NITROGEN, BLOOD 26 mg/dL (8-21)
[2022-05-25 17:12] LABS: BASOPHILS # (AUTO) 0.1 K/uL (0.0-0.2); BASOPHILS % (AUTO) 0.5 % (0.0-2.0); EOSINOPHILS # (AUTO) 0.1 K/uL (0.0-0.4); EOSINOPHILS % (AUTO) 1.3 % (0.0-4.0); HEMATOCRIT 35.6 % (36-48); HEMOGLOBIN 11.6 g/dL (12.0-16.0); LYMPHOCYTES # (AUTO) 2.4 K/uL (1.0-5.5); MEAN CORPUSCULAR HEMOGLOBIN 26 pg (27-31); MEAN CORPUSCULAR HGB CONC 33 % (32-36); MEAN CORPUSCULAR VOLUME 80 fL (79.0-98.0); MONOCYTES # (AUTO) 0.7 K/uL (0.0-1.0); MONOCYTES % (AUTO) 6.4 % (1.7-9.3); NEUTROPHILS # (AUTO) 7.5 K/uL (1.8-7.7); NEUTROPHILS % (AUTO) 69.8 % (40.0-70.0); PLATELET COUNT (AUTO) 317 K/uL (130-430); RED BLOOD CELL COUNT(AUTO) 4.47 MIL/uL (4.2-6.2); RED CELL DISTRIBUTION WIDTH 17.8 % (9.0-15.0); WHITE BLOOD COUNT (AUTO) 10.8 K/uL (4.8-10.8)
[2022-05-25] MEDS ORDERED: CEFAZOLIN 1 GM IVPB PREMIX 50 ML IV ONE (20:55)
[2022-05-25] MEDS ORDERED: ONDANSETRON HCL 4 MG/2 ML VIAL ONE (20:55)
[2022-05-25] MEDS ORDERED: fentaNYL CITRATE/PF 100 MCG/2 ML AMP ONE (20:55)
[2022-05-25] MEDS ORDERED: LR 1,000 ML IV.SOLN IV ONE (20:55)
[2022-05-25] MEDS ORDERED: SUCCINYLCHOLINE CHLORIDE 20 MG/ML(QUELICIN) ONE (20:55)
[2022-05-25] MEDS ORDERED: BUPIVACAINE /PF 0.25% 30 ML VIAL INJ ONE (20:55)
[2022-05-25] MEDS ORDERED: ePHEDrine sulfate 50 MG/ML VIAL ONE (20:55)
[2022-05-25] MEDS ORDERED: SEVOFLURANE 15 MIN GAS INH ONE (20:55)
[2022-05-25] MEDS ORDERED: NS IRRIG SOLN 1000 ML IR ONE (20:55)
[2022-05-25] MEDS ORDERED: KETOROLAC TROMETHAMINE 30 MG VIAL ONE (20:55)
--- NOTE | 2022-05-25 20:56 | NUR ---
PATIENT TAKEN TO OR WITH RN'S
[2022-05-25] MEDS ORDERED: ONDANSETRON HCL 4 MG/2 ML VIAL IVP PRN (22:00)
[2022-05-25] MEDS ORDERED: fentaNYL CITRATE/PF 100 MCG/2 ML AMP IVP ONE (22:00)
[2022-05-25] MEDS ORDERED: MORPHINE 4 MG INJ. 4 MG/ML VIAL IVP PRN ×2 (22:00)
[2022-05-25] MEDS ORDERED: METOCLOPRAMIDE HCL 10 MG/2 ML VIAL IVP PRN (22:00)
[2022-05-25] MEDS ORDERED: ONDANSETRON 4 MG ODT TAB PO PRN (22:30)
[2022-05-25] MEDS ORDERED: traMADol HCL HCL 50 MG TABLET (ULTRAM) PO PRN (22:30)
[2022-05-25] MEDS ORDERED: HYDROmorphone 2 MG/ML VIAL IVP PRN (22:30)
[2022-05-25] MEDS ORDERED: ACETAMINOPHEN/CODEINE 300 MG-30 MG TABLET PO PRN (22:30)
[2022-05-25] MEDS ORDERED: INSULIN ASPART 100 UNITS/ML, 10 ML VIAL (NovoLOG) SUBCUT PRN (22:30)
[2022-05-25] MEDS ORDERED: DIPHENHYDRAMINE INJ 50 MG/ML VIAL IVP PRN (22:30)
[2022-05-25] MEDS ORDERED: NALOXONE HCL 0.4 MG/ML AMP (NARCAN) IVP PRN (22:30)
--- NOTE | 2022-05-25 22:45 | NUR ---
Admission Note Received patient from OR S/P I&D of right knee . Initial Plan of Care discussed-patient verbalized understanding. Oriented to room, call light, pain management and safety.
[2022-05-25 22:51] VITALS: BP_SYST 145
[2022-05-25 23:25] VITALS: BP_SYST 126
[2022-05-26] MEDS: ACETAMINOPHEN/CODEINE 300 MG-30 MG TABLET PO PRN ×2 (06:04→18:18)
--- NOTE | 2022-05-26 06:16 | NUR ---
CLOSING NOTE PATIENT IN BED, AWAKE, PRN PAIN MED JUST GIVEN, TO BE REASSESSED. BREATHING EVEN AND UNLABORED. IV SITE PATENT, NO SIGNS OF INFILTRATION OR INFECTION NOTED. ALL NEEDS MET THROUGHOUT SHIFT. FALL, SAFETY PRECAUTIONS MAINTAINED THROUGHOUT SHIFT. WILL CONTINUE TO MONITOR UNTIL PATIENT CARE IS ENDORSED TO ONCOMING DAYSHIFT NURSE.
[2022-05-26 08:00] VITALS: BP_SYST 113
[2022-05-26] MEDS ORDERED: hydrALAZINE HCL 25 MG TABLET PO SCH (09:00)
[2022-05-26] MEDS ORDERED: POTASSIUM CHLORIDE 20 MEQ TAB.PRT.SR PO SCH (09:00)
[2022-05-26] MEDS ORDERED: MAGNESIUM OXIDE 400 MG TABLET PO SCH (09:00)
[2022-05-26] MEDS ORDERED: FUROSEMIDE 80 MG TABLET PO SCH (09:00)
[2022-05-26] MEDS ORDERED: ASCORBIC ACID 500 MG TABLET PO SCH (09:00)
[2022-05-26] MEDS ORDERED: ENOXAPARIN SODIUM 40 MG/0.4 ML SYRINGE SUBCUT SCH (09:00)
[2022-05-26] MEDS ORDERED: METOPROLOL TARTRATE 25 MG TABLET PO SCH (09:00)
[2022-05-26] MEDS ORDERED: metFORMIN HCL 500 MG TABLET PO SCH (09:00)
[2022-05-26] MEDS ORDERED: PANTOPRAZOLE SODIUM 40 MG TAB PO SCH (09:00)
[2022-05-26 12:00] VITALS: BP_SYST 116
--- NOTE | 2022-05-26 12:00 | NUR ---
Spoke with Dr. Rodriguez regarding patient's discharge. MD indicated that patient is well and able to be discharged at any time. Patient has been advised of how to maintain leg after the surgical procedure and per MD patient has all of the medicine she needs at home. If patient has any additional questions she or family member may call Dr. Rodriguez directly., per .
[2022-05-26 16:00] VITALS: BP_SYST 118
[2022-05-26 17:06] VITALS: BP_SYST 117
--- NOTE | 2022-05-26 18:19 | NUR ---
ASSISTED PT TO DRESS UP, RN GERSON ASSISTED ME TOO. PT HAS A LOT OF QUESTION I CANNOT ANSWER , TRIED TO FIND THE ASSIGNED RN BUT UNABLE TO LOCATE RN. ASSIGNED RN CAME ONLY WHEN PT IS ALREADY DRESSED UP. AND
[2022-05-26] MEDS ORDERED: rifAMPin 300 MG CAPSULE PO SCH (21:00)
[2022-05-26] MEDS ORDERED: ATORVASTATIN 20 MG TABLET PO SCH (21:00)
[2022-05-27] MEDS ORDERED: Effexor XR 37.5 MG PO SCH (09:00)
== END 2022-05-26 18:52 | disposition home or self-care (01) ==
LOC: SED 10:40 → SDS 13:38 → SMU 21:30 → SDS 05-26 18:52
PROVIDERS: ATTEND Orthopaedic Surgery
DX: T81.30XA Disruption of wound, unspecified, initial encounter (principal); I10 Essential (primary) hypertension; E11.9 Type 2 diabetes mellitus without complications; E66.01 Morbid (severe) obesity due to excess calories; Z88.8 Allergy status to other drugs, medicaments and biological substances; Y82.8 Other medical devices associated with adverse incidents
CPT/HCPCS: 15271; 87426; 80048; 82962; 85025; 87081; 87070 ×2; 87075; 36415; 93005; 94010; 94760; 97162; 97530; 97110; J3490; J0690; J1885; J2405; J0330; J3010; J7120; A2007; J1650; J2270

== ENCOUNTER 2022-06-14 17:59 | Outpatient (CLI) | payer OTHER, MEDICARE | END 2022-06-14 19:57 | disposition home or self-care (01) | LOC: SLB 17:59 | PROVIDERS: ATTEND Orthopaedic Surgery | DX: M00.9 Pyogenic arthritis, unspecified (principal) | CPT/HCPCS: 87070-TC ==